=== PATIENT | female | born 1945 | race Caucasian/White ===

== ENCOUNTER 2021-01-28 15:10 | Emergency (ER) | payer MEDICARE, OTHER ==
[~2021-01-28] VITALS: Ht 154.9 cm; Wt 77.1 kg
[2021-01-28 17:36] VITALS: BP 160/86
== END 2021-01-28 17:40 | disposition home or self-care (01) ==
LOC: ER 15:38
DX: S00.83XA Contusion of other part of head, initial encounter (principal); W01.190A Fall on same level from slipping, tripping and stumbling with subsequent striking against furniture, initial encounter; Y93.01 Activity, walking, marching and hiking; Y92.008 Other place in unspecified non-institutional (private) residence as the place of occurrence of the external cause; I10 Essential (primary) hypertension; J44.9 Chronic obstructive pulmonary disease, unspecified; Z86.73 Personal history of transient ischemic attack (TIA), and cerebral infarction without residual deficits
CPT/HCPCS: 70450; 72125; 99283

== ENCOUNTER 2021-03-03 16:02 | Emergency (ER) | payer MEDICARE, OTHER ==
[~2021-03-03] VITALS: Ht 157.5 cm; Wt 81.6 kg
[2021-03-03] MEDS ORDERED: ASPIRIN EC81 MG PO (16:50)
[2021-03-03] MEDS ORDERED: ULTRAM50 MG PO (16:50)
[2021-03-03] MEDS ORDERED: LISINOPRIL10 MG PO (16:50)
[2021-03-03] MEDS ORDERED: CEFEPIME 2 GM/NS 0.9% 100 ML 100 ML IV SCH (20:30)
[2021-03-03] MEDS ORDERED: METRONIDAZOLE 500MG/NS 100ML 100 ML IV SCH (22:00)
== END 2021-03-03 20:05 | disposition home or self-care (01) ==
LOC: FSED 16:38
DX: K59.00 Constipation, unspecified (principal); I10 Essential (primary) hypertension; J44.9 Chronic obstructive pulmonary disease, unspecified; Z99.81 Dependence on supplemental oxygen; H91.92 Unspecified hearing loss, left ear
CPT/HCPCS: 74022; 99283

== ENCOUNTER 2021-10-08 21:20 | Inpatient (IN) | payer MEDICARE, OTHER ==
[~2021-10-08] VITALS: Ht 157.5 cm; Wt 81.6 kg
[~2021-10-08 21:20] MED LIST: ASPIRIN EC81 MG PO; LISINOPRIL10 MG PO; ULTRAM50 MG PO
[2021-10-08] MEDS ORDERED: IPRATROPIUM BROMIDE 0.02% 2.5 ML NEB NEB STA (21:28)
[2021-10-08] MEDS ORDERED: SODIUM CHLORIDE 0.9% 1000ML 1,000 ML IV STA (21:28)
[2021-10-08] MEDS ORDERED: ALBUTEROL SULF 0.083% NEB SOLN 3 ML NEB NEB STA (21:28)
[2021-10-08] MEDS ORDERED: CEFTRIAXONE 1 GM VIAL IV ONE ×2 (21:30→22:00)
[2021-10-08] MEDS ORDERED: METHYLPREDNISOLONE SOD SUCC 125 MG/2ML VIAL IV ONE (21:30)
[2021-10-08] MEDS ORDERED: ONDANSETRON HCL INJ 2MG/ML 2ML 2 MG/ML VIAL IV PRN (21:45)
[2021-10-08] MEDS: ACETAMINOPHEN 325 MG TAB PO PRN (22:00)
[2021-10-08] MEDS ORDERED: CEFTRIAXONE 1 GM in SODIUM CHLORIDE 0.9% 50ML 50 ML IV ONE (22:00)
[2021-10-08] MEDS ORDERED: ACETAMINOPHEN 325 MG TAB ONE (22:16)
[2021-10-08] MEDS ORDERED: METHYLPREDNISOLONE SOD SUCC 125 MG/2ML VIAL ONE (22:16)
[2021-10-08] MEDS ORDERED: ONDANSETRON HCL INJ 2MG/ML 2ML 2 MG/ML VIAL ONE (22:16)
[2021-10-08] MEDS ORDERED: IPRATROPIUM BROMIDE 0.02% 2.5 ML NEB ONE (22:17)
[2021-10-08] MEDS ORDERED: ALBUTEROL SULF 0.083% NEB SOLN 3 ML NEB ONE (22:17)
[2021-10-08] MEDS ORDERED: SODIUM CHLORIDE 0.9% 1000ML 1,000 ML ONE (22:17)
[2021-10-08] MEDS ORDERED: SODIUM CHLORIDE 0.9% 50ML 50 ML ONE (22:17)
[2021-10-08] MEDS ORDERED: CEFTRIAXONE 1 GM VIAL ONE (22:18)
[2021-10-08] MEDS ORDERED: SODIUM CHLORIDE 0.9% 1000ML 1,000 ML IV SCH (22:30)
[2021-10-08] MEDS ORDERED: DIPHENHYDRAMINE HCL INJ 50 MG/ML VIAL IV PRN (22:30)
[2021-10-08] MEDS ORDERED: ALBUTEROL SULF 0.083% NEB SOLN 3 ML NEB NEB SCH (23:00)
[2021-10-08 23:40] LABS: ABG PCO2 42 mmHg (35-45); ABG PH 7.41 (7.35-7.45); ABG PO2 71 mmHg (80-105)
[2021-10-08 23:41] LABS: ABG HCO3 27 mmol/L (22-26); ABG TCO2 28
[2021-10-09] VITALS (21 sets, daily range): BP systolic 5–149; BP diastolic 61–136
[2021-10-09 06:49] LABS: BASOPHILS # (AUTO) 0.1 (0.0-0.1); BASOPHILS % 0.3 % (0.0-1.0); EOSINOPHILS # (AUTO) 0.1 (0.0-0.4); EOSINOPHILS % 0.3 % (0.0-6.0); HEMATOCRIT 31.7 % (34.2-44.1); HEMOGLOBIN 10.6 g/dL (12.0-16.0); LYMPHOCYTES # (AUTO) 0.7 (1.0-3.2); LYMPHOCYTES % 2.4 % (18.0-39.1); MEAN CORPUSCULAR HEMOGLOBIN 30.5 pg (28-32); MEAN CORPUSCULAR HGB CONC 33.4 g/dL (31-35); MEAN CORPUSCULAR VOLUME 91.1 fL (81-99); MONOCYTES # (AUTO) 0.3 (0.2-0.8); NEUTROPHILS % 94.3 % (38.7-80.0); PLATELET COUNT 264 x10e3/uL (140-360); RED BLOOD COUNT 3.48 x10e6/uL (3.6-5.1); RED CELL DISTRIBUTION WIDTH 12.8 % (11.7-14.4)
[2021-10-09] MEDS ORDERED: ZOLPIDEM TARTRATE 5 MG TAB PO PRN (07:00)
[2021-10-09 07:10] LABS: CALCIUM 8.9 mg/dL (8.4-10.2); CREATININE, SERUM 0.86 mg/dL (0.57-1.11)
[2021-10-09 07:15] LABS: INR 0.95; PROTHROMBIN TIME 13.4 seconds (11.9-14.5)
[2021-10-09 07:16] LABS: PARTIAL THROMBOPLASTIN TIME 32.6 seconds (23.8-35.5)
[2021-10-09 08:31] LABS: BAND NEUTROPHILS % (MANUAL) 7 %; LYMPHOCYTES % (MANUAL) 2 % (19-48); MONOCYTES % (MANUAL) 1 % (3.4-9.0); NEUTROPHILS % (MANUAL) 89 % (40-74)
[2021-10-09 08:32] LABS: PLATELET ESTIMATE ADEQUATE; PLATELET MORPHOLOGY COMMENT NORMAL; RBC MORPHOLOGY COMMENT NORMAL
[2021-10-09] MEDS: FAMOTIDINE 20 MG/2 ML VIAL IV SCH ×2 (08:44→17:27)
[2021-10-09] MEDS: ASPIRIN 81 MG ENTERIC COATED PO SCH (08:44)
[2021-10-09] MEDS: METHYLPREDNISOLONE SOD SUCC 40 MG/ML VIAL 1ML IV SCH ×2 (08:44→21:00)
[2021-10-09] MEDS: ENOXAPARIN SOD INJ 40 MG/0.4 ML SYR SC SCH (08:44)
[2021-10-09 08:52] LABS: FERRITIN 189.66 ng/mL (4.63-204.00)
[2021-10-09] MEDS: ALBUTEROL SULF 0.083% NEB SOLN 3 ML NEB NEB PRN (15:45)
[2021-10-09] MEDS: CEFTRIAXONE 1 GM in SODIUM CHLORIDE 0.9% 50ML 50 ML IV SCH (20:00)
[2021-10-10] VITALS (8 sets, daily range): BP systolic 96–152; BP diastolic 61–88
[2021-10-10 05:56] LABS: BASOPHILS % 0.2 % (0.0-1.0); HEMATOCRIT 30.9 % (34.2-44.1); HEMOGLOBIN 9.9 g/dL (12.0-16.0); LYMPHOCYTES # (AUTO) 1.2 (1.0-3.2); LYMPHOCYTES % 4.8 % (18.0-39.1); MEAN CORPUSCULAR HEMOGLOBIN 30.1 pg (28-32); MEAN CORPUSCULAR VOLUME 93.9 fL (81-99); MONOCYTES # (AUTO) 0.8 (0.2-0.8); MONOCYTES % 3.3 % (4.4-11.3); NEUTROPHILS # (AUTO) 22.4 (2.1-6.9); NEUTROPHILS % 90.3 % (38.7-80.0); PLATELET COUNT 270 x10e3/uL (140-360); RED BLOOD COUNT 3.29 x10e6/uL (3.6-5.1); RED CELL DISTRIBUTION WIDTH 12.8 % (11.7-14.4)
[2021-10-10 06:18] LABS: ALBUMIN 3.1 g/dL (3.5-5.0); ALBUMIN/GLOBULIN RATIO 0.9 (0.8-2.0); ANION GAP 13.9 mmol/L (8-16); CREATININE, SERUM 0.91 mg/dL (0.57-1.11); POTASSIUM 4.9 mmol/L (3.5-5.1)
[2021-10-10] MEDS: ALBUTEROL SULF 0.083% NEB SOLN 3 ML NEB NEB PRN (07:31)
[2021-10-10] MEDS: ASPIRIN 81 MG ENTERIC COATED PO SCH (07:59)
[2021-10-10] MEDS: METHYLPREDNISOLONE SOD SUCC 40 MG/ML VIAL 1ML IV SCH (07:59)
[2021-10-10] MEDS: FAMOTIDINE 20 MG/2 ML VIAL IV SCH ×2 (07:59→17:15)
[2021-10-10] MEDS: ENOXAPARIN SOD INJ 40 MG/0.4 ML SYR SC SCH (07:59)
[2021-10-10] MEDS: CEFTRIAXONE 1 GM in SODIUM CHLORIDE 0.9% 50ML 50 ML IV SCH (08:10)
[2021-10-10] MEDS ORDERED: DEXTROSE 50% SYRINGE 50 ML IV PRN (08:30)
[2021-10-10] MEDS ORDERED: CLONAZEPAM2 MG PO (08:51)
[2021-10-10] MEDS ORDERED: ESCITALOPRAM OX20 MG PO (08:51)
[2021-10-10 09:05] LABS: LYMPHOCYTES % (MANUAL) 7 % (19-48); MONOCYTES % (MANUAL) 2 % (3.4-9.0); NEUTROPHILS % (MANUAL) 91 % (40-74); PLATELET ESTIMATE ADEQUATE; PLATELET MORPHOLOGY COMMENT NORMAL; RBC MORPHOLOGY COMMENT NORMAL
[2021-10-10] MEDS: FERROUS SULFATE 325 MG TAB PO SCH (09:52)
[2021-10-10] MEDS: ESCITALOPRAM OXALATE 10 MG TAB PO SCH (09:52)
[2021-10-10] MEDS ORDERED: ONDANSETRON HCL 4 MG ORAL DISINTEGRATING TAB PO PRN (11:15)
[2021-10-10] MEDS: ACETAMINOPHEN 325 MG TAB PO PRN (11:56)
[2021-10-10] MEDS: INSULIN LISPRO 100 UNIT/1 ML 3ML VIAL SQ SCH ×3 (12:03→20:44)
[2021-10-10] MEDS: CLONAZEPAM 0.5 MG TAB PO PRN (17:45)
[2021-10-11] VITALS (7 sets, daily range): BP systolic 144–165; BP diastolic 76–87
[2021-10-11] MEDS: ALBUTEROL SULF 0.083% NEB SOLN 3 ML NEB NEB PRN (04:15)
[2021-10-11 05:55] LABS: BASOPHILS % 0.2 % (0.0-1.0); EOSINOPHILS % 0.1 % (0.0-6.0); HEMATOCRIT 30.2 % (34.2-44.1); HEMOGLOBIN 9.7 g/dL (12.0-16.0); LYMPHOCYTES # (AUTO) 2.2 (1.0-3.2); LYMPHOCYTES % 11.2 % (18.0-39.1); MEAN CORPUSCULAR HEMOGLOBIN 29.9 pg (28-32); MEAN CORPUSCULAR HGB CONC 32.1 g/dL (31-35); MEAN CORPUSCULAR VOLUME 93.2 fL (81-99); MONOCYTES # (AUTO) 1.3 (0.2-0.8); MONOCYTES % 6.5 % (4.4-11.3); NEUTROPHILS # (AUTO) 15.8 (2.1-6.9); NEUTROPHILS % 80.1 % (38.7-80.0); PLATELET COUNT 267 x10e3/uL (140-360); RED BLOOD COUNT 3.24 x10e6/uL (3.6-5.1)
[2021-10-11] MEDS: CLONAZEPAM 0.5 MG TAB PO PRN (06:00)
[2021-10-11 06:58] LABS: ANION GAP 12.2 mmol/L (8-16); CALCIUM 8.8 mg/dL (8.4-10.2); CREATININE, SERUM 0.79 mg/dL (0.57-1.11); MAGNESIUM 1.7 MG/DL (1.3-2.1); POTASSIUM 4.2 mmol/L (3.5-5.1)
[2021-10-11] MEDS: INSULIN LISPRO 100 UNIT/1 ML 3ML VIAL SQ SCH ×3 (07:30→17:14)
[2021-10-11] MEDS: ASPIRIN 81 MG ENTERIC COATED PO SCH (08:40)
[2021-10-11] MEDS: ENOXAPARIN SOD INJ 40 MG/0.4 ML SYR SC SCH (08:40)
[2021-10-11] MEDS: FERROUS SULFATE 325 MG TAB PO SCH (08:40)
[2021-10-11] MEDS: FAMOTIDINE 20 MG/2 ML VIAL IV SCH ×2 (08:40→17:15)
[2021-10-11] MEDS: ESCITALOPRAM OXALATE 10 MG TAB PO SCH (08:40)
[2021-10-11] MEDS: CEFTRIAXONE 1 GM in SODIUM CHLORIDE 0.9% 50ML 50 ML IV SCH (08:40)
[2021-10-12 04:00] VITALS: BP 168/95
[2021-10-12] MEDS: INSULIN LISPRO 100 UNIT/1 ML 3ML VIAL SQ SCH ×4 (04:42→16:30)
[2021-10-12 05:59] LABS: BASOPHILS # (AUTO) 0.1 (0.0-0.1); BASOPHILS % 0.5 % (0.0-1.0); EOSINOPHILS # (AUTO) 0.3 (0.0-0.4); EOSINOPHILS % 2.5 % (0.0-6.0); HEMOGLOBIN 10.3 g/dL (12.0-16.0); LYMPHOCYTES # (AUTO) 2.4 (1.0-3.2); LYMPHOCYTES % 22.2 % (18.0-39.1); MEAN CORPUSCULAR HEMOGLOBIN 30.1 pg (28-32); MEAN CORPUSCULAR HGB CONC 32.2 g/dL (31-35); MEAN CORPUSCULAR VOLUME 93.6 fL (81-99); MONOCYTES # (AUTO) 1.3 (0.2-0.8); MONOCYTES % 11.9 % (4.4-11.3); NEUTROPHILS # (AUTO) 6.5 (2.1-6.9); NEUTROPHILS % 59.3 % (38.7-80.0); PLATELET COUNT 285 x10e3/uL (140-360); RED BLOOD COUNT 3.42 x10e6/uL (3.6-5.1); RED CELL DISTRIBUTION WIDTH 12.9 % (11.7-14.4)
[2021-10-12 06:30] LABS: ALBUMIN 2.9 g/dL (3.5-5.0); ALBUMIN/GLOBULIN RATIO 0.9 (0.8-2.0); ANION GAP 11.2 mmol/L (8-16); CALCIUM 9.3 mg/dL (8.4-10.2); CREATININE, SERUM 0.83 mg/dL (0.57-1.11); MAGNESIUM 1.7 MG/DL (1.3-2.1); POTASSIUM 4.2 mmol/L (3.5-5.1)
[2021-10-12 08:26] VITALS: BP 164/81
[2021-10-12] MEDS: ASPIRIN 81 MG ENTERIC COATED PO SCH (09:15)
[2021-10-12] MEDS: ESCITALOPRAM OXALATE 10 MG TAB PO SCH (09:15)
[2021-10-12] MEDS: FAMOTIDINE 20 MG/2 ML VIAL IV SCH (09:15)
[2021-10-12] MEDS: FERROUS SULFATE 325 MG TAB PO SCH (09:15)
[2021-10-12] MEDS: ENOXAPARIN SOD INJ 40 MG/0.4 ML SYR SC SCH (09:15)
[2021-10-12] MEDS: CEFTRIAXONE 1 GM in SODIUM CHLORIDE 0.9% 50ML 50 ML IV SCH (09:16)
[2021-10-12 12:26] VITALS: BP 109/84
[2021-10-12 13:25] VITALS: BP 109/84
[2021-10-12] MEDS ORDERED: Ferrous Sulfate PO (13:33)
[2021-10-12] MEDS ORDERED: ALBUTEROL2.5 MG/3 M NEB (13:33)
[2021-10-12] MEDS ORDERED: PREDNISONE50 MG PO (13:33)
[2021-10-12] MEDS ORDERED: AUGMENTIN 875-1 EACH PO (13:36)
[2021-10-12] MEDS ORDERED: FAMOTIDINE 20 MG TAB PO SCH (16:30)
[2021-10-12 16:38] VITALS: BP 159/74
[2021-10-12] MEDS ORDERED: AZITHROMYCIN 250 MG TAB PO SCH (22:30)
== END 2021-10-12 17:00 | disposition home or self-care (01) | DRG 871 ==
LOC: FSED 21:30 → ERHOLD 22:23 → ICU 10-09 00:39 → MED/SURG3 10-09 13:10
PROVIDERS: ADMIT Internal Medicine; ATTEND Internal Medicine
DX: A41.9 Sepsis, unspecified organism (principal); J18.9 Pneumonia, unspecified organism; J96.21 Acute and chronic respiratory failure with hypoxia; J44.0 Chronic obstructive pulmonary disease with (acute) lower respiratory infection; J44.1 Chronic obstructive pulmonary disease with (acute) exacerbation; H91.93 Unspecified hearing loss, bilateral; Z99.81 Dependence on supplemental oxygen; Z86.73 Personal history of transient ischemic attack (TIA), and cerebral infarction without residual deficits; Z87.891 Personal history of nicotine dependence; Z20.822 Contact with and (suspected) exposure to COVID-19
CPT/HCPCS: 36415; 51700; 71045; 80048; 80053; 80076; 81003; 82607; 82728; 82746; 82805; 82948; 83036; 83540; 83605; 83735; 83880; 84466; 85025; 85610; 85730; 87040; 87070; 87086; 87205; 87400; 93005; 93306; 94640; 94799; 96360; 96372; 96374; 96376; 97139; 99284; J0456; J0696; J1650; J2405; J2920; J2930; J7030; J7050; U0002

== ENCOUNTER 2022-02-26 14:51 | Inpatient (IN) | payer MEDICARE, OTHER ==
[~2022-02-26] VITALS: Ht 154.9 cm; Wt 77.1 kg
[~2022-02-26 14:51] MED LIST changes: +ALBUTEROL2.5 MG/3 M NEB; +AUGMENTIN 875-1 EACH PO; +CLONAZEPAM2 MG PO; +ESCITALOPRAM OX20 MG PO; +Ferrous Sulfate PO; +PREDNISONE50 MG PO
[2022-02-26] MEDS ORDERED: METHYLPREDNISOLONE SOD SUCC 125 MG/2ML VIAL IV ONE (15:30)
[2022-02-26] MEDS ORDERED: ALBUTEROL/IPRATROPIUM 3 ML NEB INH ONE (15:30)
[2022-02-26] MEDS ORDERED: METHYLPREDNISOLONE SOD SUCC 125 MG/2ML VIAL ONE (15:41)
[2022-02-26] MEDS ORDERED: ALBUTEROL/IPRATROPIUM 3 ML NEB ONE (15:42)
[2022-02-26] MEDS ORDERED: LEVOFLOXACIN 750MG/D5W 150ML IV ONE (16:30)
[2022-02-26] MEDS ORDERED: LEVOFLOXACIN 750MG/D5W 150ML 150 ML IV ONE ×2 (16:30→16:33)
[2022-02-26] MEDS ORDERED: LORAZEPAM 0.5 MG TAB PO ONE (18:45)
[2022-02-26] MEDS ORDERED: LORAZEPAM 0.5 MG TAB ONE (18:47)
[2022-02-26 19:31] VITALS: BP 135/81
[2022-02-26 23:12] VITALS: BP 135/81
[2022-02-26 23:51] VITALS: BP 145/81
[2022-02-26 23:54] VITALS: BP 145/81
[2022-02-27] MEDS ORDERED: LORAZEPAM 0.5 MG TAB PO PRN (00:15)
[2022-02-27 04:10] VITALS: BP 146/94
[2022-02-27 06:59] LABS: BASOPHILS % 0.2 % (0.0-1.0); HEMATOCRIT 37.3 % (34.2-44.1); HEMOGLOBIN 12.2 g/dL (12.0-16.0); LYMPHOCYTES # (AUTO) 1.1 (1.0-3.2); LYMPHOCYTES % 11.3 % (18.0-39.1); MEAN CORPUSCULAR HEMOGLOBIN 29.7 pg (28-32); MEAN CORPUSCULAR HGB CONC 32.7 g/dL (31-35); MEAN CORPUSCULAR VOLUME 90.8 fL (81-99); MONOCYTES # (AUTO) 0.5 (0.2-0.8); MONOCYTES % 4.9 % (4.4-11.3); NEUTROPHILS # (AUTO) 8.1 (2.1-6.9); PLATELET COUNT 261 x10e3/uL (140-360); RED BLOOD COUNT 4.11 x10e6/uL (3.6-5.1); RED CELL DISTRIBUTION WIDTH 13.3 % (11.7-14.4)
[2022-02-27] MEDS: ALBUTEROL/IPRATROPIUM 3 ML NEB NEB SCH ×4 (07:15→23:10)
[2022-02-27 07:19] LABS: ANION GAP 12.9 mmol/L (8-16); CREATININE, SERUM 0.89 mg/dL (0.57-1.11); POTASSIUM 4.9 mmol/L (3.5-5.1)
[2022-02-27] MEDS ORDERED: CLONAZEPAM 1 MG TAB PO PRN (07:30)
[2022-02-27] MEDS ORDERED: ALBUTEROL SULF 0.083% NEB SOLN 3 ML NEB NEB PRN (07:30)
[2022-02-27 08:04] VITALS: BP 124/97
[2022-02-27] MEDS: ESCITALOPRAM OXALATE 10 MG TAB PO SCH (09:30)
[2022-02-27] MEDS: LISINOPRIL 10 MG TAB PO SCH (09:30)
[2022-02-27] MEDS: ASPIRIN 81 MG ENTERIC COATED PO SCH (09:30)
[2022-02-27] MEDS: PREDNISONE 20 MG TAB PO SCH (09:30)
[2022-02-27] MEDS: TRAMADOL HCL 50 MG TAB PO SCH ×3 (11:38→23:07)
[2022-02-27] MEDS ORDERED: ACETAMINOPHEN 325 MG TAB PO PRN (14:00)
[2022-02-27] MEDS ORDERED: SODIUM CHLORIDE 0.9% 250ML 250 ML ONE (15:55)
[2022-02-27] MEDS: CEFTRIAXONE 2 GM in SODIUM CHLORIDE 0.9% 100 ML IV SCH (16:00)
[2022-02-27] MEDS: OSELTAMIVIR PHOSPHATE 75 MG CAP PO SCH (16:09)
[2022-02-27 19:53] VITALS: BP 125/70
[2022-02-27 20:03] VITALS: BP 125/70
[2022-02-27 23:49] VITALS: BP 144/75
[2022-02-28] VITALS (8 sets, daily range): BP systolic 125–158; BP diastolic 69–87
[2022-02-28] MEDS: ALBUTEROL/IPRATROPIUM 3 ML NEB NEB SCH ×4 (00:43→19:30)
[2022-02-28] MEDS: TRAMADOL HCL 50 MG TAB PO SCH ×4 (05:24→23:47)
[2022-02-28] MEDS: ASPIRIN 81 MG ENTERIC COATED PO SCH (08:44)
[2022-02-28] MEDS: ESCITALOPRAM OXALATE 10 MG TAB PO SCH (08:44)
[2022-02-28] MEDS: LISINOPRIL 10 MG TAB PO SCH (08:46)
[2022-02-28] MEDS: OSELTAMIVIR PHOSPHATE 75 MG CAP PO SCH ×2 (08:46→16:18)
[2022-02-28] MEDS: PREDNISONE 20 MG TAB PO SCH (08:46)
[2022-02-28] MEDS: CEFTRIAXONE 2 GM in SODIUM CHLORIDE 0.9% 100 ML IV SCH (16:40)
[2022-03-01 03:14] VITALS: BP 159/90
[2022-03-01] MEDS: TRAMADOL HCL 50 MG TAB PO SCH ×2 (05:22→13:28)
[2022-03-01] MEDS: ALBUTEROL/IPRATROPIUM 3 ML NEB NEB SCH ×2 (06:15→11:15)
[2022-03-01 08:21] VITALS: BP 164/72
[2022-03-01] MEDS: ESCITALOPRAM OXALATE 10 MG TAB PO SCH (08:25)
[2022-03-01] MEDS: PREDNISONE 20 MG TAB PO SCH (08:25)
[2022-03-01] MEDS: ASPIRIN 81 MG ENTERIC COATED PO SCH (08:25)
[2022-03-01] MEDS: OSELTAMIVIR PHOSPHATE 75 MG CAP PO SCH (08:26)
[2022-03-01] MEDS: LISINOPRIL 10 MG TAB PO SCH (08:26)
[2022-03-01] MEDS ORDERED: AZITHROMYCIN 250 MG TAB PO SCH (09:00)
[2022-03-01 09:02] VITALS: BP 164/72
[2022-03-01 12:25] VITALS: BP 156/87
== END 2022-03-01 15:10 | disposition home health service (06) | DRG 190 ==
LOC: FSED 15:10 → ERHOLD 17:29 → MED/SURG2 20:46
DX: J44.0 Chronic obstructive pulmonary disease with (acute) lower respiratory infection (principal); J10.00 Influenza due to other identified influenza virus with unspecified type of pneumonia; J44.1 Chronic obstructive pulmonary disease with (acute) exacerbation; I10 Essential (primary) hypertension; Z99.81 Dependence on supplemental oxygen; Z96.21 Cochlear implant status; Z86.73 Personal history of transient ischemic attack (TIA), and cerebral infarction without residual deficits; Z90.49 Acquired absence of other specified parts of digestive tract; G47.33 Obstructive sleep apnea (adult) (pediatric); E66.9 Obesity, unspecified; Z68.32 Body mass index [BMI] 32.0-32.9, adult; Z20.822 Contact with and (suspected) exposure to COVID-19
CPT/HCPCS: 36415; 51700; 71045; 74230; 80048; 80053; 82553; 82948; 83880; 84484; 85025; 93005; 94640; 94799; 99251; 99284; J0456; J0696; J2930; J7050; J7512; U0002